=== PATIENT | male | born 1990 | race Caucasian/White ===

== ENCOUNTER 2017-05-23 18:25 | Emergency (ER) | payer SELFPAY ==
[~2017-05-23] VITALS: Ht 188 cm; Wt 47.5 kg
[2017-05-23 18:47] VITALS: BP 100/75
[2017-05-23 19:36] LABS: Hemoglobin 17.7 g/dL (13.5-17.5); Red Cell Distribution Width 13.2 % (11.8-14.3)
[2017-05-23 19:38] LABS: Hematocrit 52.8 % (41.0-53.0); Mean Corpuscular Hemoglobin 28.5 pg (28.0-32.0); Mean Corpuscular Hgb Conc. 33.5 g/dL (32.0-36.0); Mean Corpuscular Volume 85.1 fL (80.0-100.0); Platelet Count (auto) 300 10^3/uL (140-450); Red Blood Cells 6.21 10^6/uL (4.5-5.90); White Blood Cell 14.2 10^3/uL (4.4-10.8)
[2017-05-23 19:43] LABS: Basophils % (manual) 0 (0.0-2.0); Eosinophils % (manual) 0 (0-7); Metamyelocytes % 0
[2017-05-23 19:44] LABS: Blast Cells 0; Myelocytes % 0; Promyelocytes % 0; Reactive Lymphocytes 0
[2017-05-23 19:57] LABS: Albumin 4.1 g/dL (3.4-5.0); BUN/Creatinine Ratio 13.6; Bilirubin, Total 0.6 mg/dL (0.2-1.0); Calcium 9.1 mg/dL (8.5-10.1)
[2017-05-23 20:30] LABS: Band Neutrophils % (manual) 10
[2017-05-23 20:31] LABS: Lymphocytes % (manual) 5 (10.0-50.0); Monocytes % (manual) 6 (0-12)
== END 2017-05-23 21:32 | disposition left against medical advice (07) ==
LOC: ER 18:25
DX: R11.2 Nausea with vomiting, unspecified (principal); R19.7 Diarrhea, unspecified; Z53.21 Procedure and treatment not carried out due to patient leaving prior to being seen by health care provider
CPT/HCPCS: 36415; 74176; 80053; 85007; 85027